=== PATIENT | female | born 2000 | race Caucasian/White ===

== ENCOUNTER 2018-06-04 19:51 | Emergency (ER) | payer OTHER ==
--- NOTE | 2018-06-04 19:53 | UC ---
Throat Pain/Nasal [place] HPI - HPI Summary HPI Summary: 17 yo female presents with sore throat, body aches, and fever since last night. She tells me that last night her throat became sore and she had body aches. This morning she woke up and her sore throat had worsened and she noticed her tonsils had white spots and were enlarged. Also had a fever this morning, but does not remember the temperature - took ibuprofen around 1200 with good relief of fever. She is on the volleyball team and they are going away to a competition this weekend and she is concerned about getting the rest of the team sick. She is able to eat and drink, but has moderate pain when swallowing. Denies cough, SOB, chest pain, abdominal pain, n/v, or rash. Has never had mono in the past that she knows of. - History of Current Complaint Stated Complaint: SWOLLEN TONSILS AND ACHES Time Seen by Provider: 06/04/18 19:53 Hx Obtained From: Patient Onset/Duration: Sudden Onset Severity: Moderate Pain Intensity: 6 Pain Scale Used: 0-10 Numeric - Allergies/Home Medications Allergies/Adverse Reactions: Allergies Allergy/AdvReac Type Severity Reaction Status Date / Time No Known Allergies Allergy Verified 06/04/18 20:05 PMH/Surg Hx/FS Hx/Imm Hx - Additional Past Medical History Additional PMH: None - Surgical History Surgical History: None - Family History Known Family History: Positive: None - Social History Occupation: Student Lives: Dormitory/Roommates Alcohol Use: None Substance Use Type: None Smoking Status (MU): Never Smoked Tobacco Review of Systems Constitutional: Negative Skin: Negative Eyes: Negative ENT: Sore Throat Respiratory: Negative Cardiovascular: Negative Neurovascular: Negative Neurological: Negative Psychological: Negative All Other Systems Reviewed And Are Negative: Yes Physical Exam - Summary Physical Exam Summary: GENERAL: NAD. WDWN. Mildly ill appearing SKIN: No rashes, sores, lesions, or open wounds. HEENT: Head: AT/NC Eyes: Conjunctiva clear without inflammation or discharge. Ears: Hearing grossly normal. TMs intact, no bulging, erythema, or edema. Nose: Nasal mucosa pink and moist. NTTP maxillary and frontal sinus. Throat: Posterior oropharynx moderate erythema and 3+ tonsillar enlargement. Moderate yellow/white exudates. Uvula midline. No hoarse voice or muffled voice. NECK: Supple. Tonsillar LAD moderate TTP L>R CHEST: CTAB. No r/r/w. No accessory muscle use. Breathing comfortably and in no distress. CV: RRR. Without m/r/g. Pulses intact. Cap refill <2seconds NEURO: Alert. PSYCH: Age appropriate behavior. Triage Information Reviewed: Yes Vital Signs: Laboratory Tests 06/04/18 20:01 Group A Strep Rapid Negative Vital Signs: Temp Pulse Resp BP Pulse Ox 99.4 F 96 18 119/71 99 06/04/18 20:01 06/04/18 20:01 06/04/18 20:01 06/04/18 20:01 06/04/18 20:01 Vital Signs Reviewed: Yes Throat Pain/Nasal Course/Dx - Course Course Of Treatment: Discussed possibility of mono vs tonsillitis vs strep. Pt wishes to be tested for mono. Will treat with antibiotics and call with lab results. - Differential Dx/Diagnosis Provider Diagnoses: Tonsillitis Discharge - Sign-Out/Discharge Documenting (check all that apply): Patient Departure All imaging exams completed and their final reports reviewed: No Studies - Discharge Plan Condition: Stable Disposition: HOME Prescriptions: Amoxicillin PO (*) [Amoxicillin 500 MG CAP*] 500 mg PO Q12H #20 cap Patient Education Materials: Mononucleosis (ED), Tonsillitis (ED) Referrals: No Primary Care Phys,NOPCP [Primary Care Provider] - Additional Instructions: If you develop a fever, shortness of breath, chest pain, new or worsening symptoms - please call your PCP or go to the ED. - Billing Disposition and Condition Condition: STABLE Disposition: Home - Attestation Statements Provider Attestation: I was available for consult. This patient was seen by the SHANNA. The patient was not presented to, seen by, or examined by me. -Yariel
[2018-06-04 20:04] VITALS: BP 119/71
[2018-06-04] MEDS ORDERED: Amoxicillin PO (*) 500 MG CAP PO ONE (20:19)
== END 2018-06-04 20:35 | disposition home or self-care (01) ==
LOC: UCEAST 19:51
DX: J03.90 Acute tonsillitis, unspecified (principal)
CPT/HCPCS: 36415; 86308; 86664; 86665; 87651; 99212; A9270-GY; G0463

== ENCOUNTER 2018-08-17 10:48 | Emergency (ER) | payer OTHER ==
[2018-08-17 11:24] VITALS: BP 107/71
--- NOTE | 2018-08-17 11:58 | ED ---
Throat Pain/Nasal Congestion - HPI Summary HPI Summary: 17-year-old female presents with sore throat for the past day. States she just finished a course of amoxicillin on the 27. States this is her third time this semester she's had pharyngitis. She denies any history of strep. She denies any medical conditions. She denies any cough. She admits to some nausea. Admits to some sinus congestion. No headache. - History of Current Complaint Chief Complaint: UCGeneralIllness Time Seen by Provider: 08/17/18 11:54 - Allergies/Home Medications Allergies/Adverse Reactions: Allergies Allergy/AdvReac Type Severity Reaction Status Date / Time No Known Allergies Allergy Verified 08/17/18 11:24 PMH/Surg Hx/FS Hx/Imm Hx Endocrine/Hematology History: Denies: Hx Diabetes, Hx Thyroid Disease Cardiovascular History: Denies: Hx Hypertension Respiratory History: Reports: Hx Asthma Denies: Hx Chronic Obstructive Pulmonary Disease (COPD) GI History: Denies: Hx Ulcer Infectious Disease History: No Infectious Disease History: Denies: Hx Hepatitis, Hx Human Immunodeficiency Virus (HIV), Traveled Outside the in Last 30 Days - Family History Known Family History: Positive: None - Social History Alcohol Use: None Substance Use Type: Reports: None Smoking Status (MU): Never Smoked Tobacco Review of Systems Negative: Fever Positive: Sore Throat Negative: Chest Pain Negative: Shortness Of Breath All Other Systems Reviewed And Are Negative: Yes Physical Exam Triage Information Reviewed: Yes Vital Signs On Initial Exam: Initial Vitals Temp Pulse Resp BP Pulse Ox 99.8 F 98 18 107/71 100 08/17/18 11:20 08/17/18 11:20 08/17/18 11:20 08/17/18 11:20 08/17/18 11:20 Vital Signs Reviewed: Yes Appearance: Positive: Well-Appearing Skin: Positive: Warm, Dry Head/Face: Positive: Normal Head/Face Inspection Eyes: Positive: Normal, EOMI, KARINE, Conjunctiva Clear ENT: Positive: Pharyngeal erythema, TMs normal, Tonsillar swelling, Uvula midline, Other - soft palate symmetric. Negative: Tonsillar exudate, Trismus, Muffled voice Respiratory/Lung Sounds: Positive: Clear to Auscultation, Breath Sounds Present Cardiovascular: Positive: Normal, RRR Abdomen Description: Positive: Nontender, Soft Bowel Sounds: Positive: Present Musculoskeletal: Positive: Normal Neurological: Positive: Normal Psychiatric: Positive: Normal Diagnostics - Vital Signs Vital Signs Temp Pulse Resp BP Pulse Ox 08/17/18 11:20 99.8 F 98 18 107/71 100 - Laboratory Lab Statement: Any lab studies that have been ordered have been reviewed, and results considered in the medical decision making process. EENT Course/Dx - Course Course Of Treatment: 17-year-old female presents with sore throat for the past day. States she just finished a course of amoxicillin on the 27. States this is her third time this semester she's had pharyngitis. She denies any history of strep. She denies any medical conditions. She denies any cough. She admits to some nausea. Admits to some sinus congestion. No headache. on exam pharynx erythematous uvula midline. tonsils +3. strept neg. will give course of decadron with frequency of sore throat will give ENT referral. patient understand and agrees with plan. - Differential Diagnoses Differential Diagnoses: Pharyngitis, Tonsilitis, URI/Bronchitis - Diagnoses Provider Diagnoses: Pharyngitis Discharge - Sign-Out/Discharge Documenting (check all that apply): Patient Departure All imaging exams completed and their final reports reviewed: No Studies - Discharge Plan Condition: Good Disposition: HOME Prescriptions: Dexamethasone TAB* [Decadron TAB*] 4 mg PO DAILY #5 tab Patient Education Materials: Pharyngitis (ED) Referrals: No Primary Care Phys,NOPCP [Primary Care Provider] - Dick Santos MD [Medical Doctor] - Additional Instructions: Take steroid once a day for 5 days Take Tylenol or ibuprofen for pain every 6 hours Can gargle salt water Can use cough drops or products such as cloraseptic spray Follow up with ENT Return to ED if develop any new or worsening symptoms - Billing Disposition and Condition Condition: GOOD Disposition: Home - Attestation Statements Provider Attestation: Per institutional requirements, I have reviewed the chart, however, I was not consulted specifically or made aware of this patient by the midlevel provider. I did not personally evaluate, interact with , or disposition this patient.
--- NOTE | 2018-08-18 16:51 | UC ---
- Progress Note Progress Note: Pt positive for group C strep - please start Amoxicillin 500mg BID for 10 days Course/Dx - Diagnoses Provider Diagnoses: Pharyngitis Discharge - Sign-Out/Discharge Documenting (check all that apply): Patient Departure All imaging exams completed and their final reports reviewed: No Studies - Discharge Plan Condition: Good Disposition: HOME Prescriptions: Amoxicillin PO (*) [Amoxicillin 500 MG CAP*] 500 mg PO Q12H #20 cap Dexamethasone TAB* [Decadron TAB*] 4 mg PO DAILY #5 tab Patient Education Materials: Pharyngitis (ED) Referrals: Dick Santos MD [Medical Doctor] - No Primary Care Phys,NOPCP [Primary Care Provider] - Additional Instructions: Take steroid once a day for 5 days Take Tylenol or ibuprofen for pain every 6 hours Can gargle salt water Can use cough drops or products such as cloraseptic spray Follow up with ENT Return to ED if develop any new or worsening symptoms - Billing Disposition and Condition Condition: GOOD Disposition: Home
== END 2018-08-17 12:25 | disposition home or self-care (01) ==
LOC: UCEAST 10:48
DX: J02.9 Acute pharyngitis, unspecified (principal)
CPT/HCPCS: 87070; 87077; 87651; 99212; G0463